=== PATIENT | female | born 1955 | race Caucasian/White ===

== ENCOUNTER 2016-09-02 | Emergency (ER) | payer OTHER | END 2016-09-02 17:23 | disposition left against medical advice (07) | DX: Z53.21 Procedure and treatment not carried out due to patient leaving prior to being seen by health care provider (principal) ==

== ENCOUNTER → 2016-09-18 | Outpatient (CLI) | payer OTHER | LOC: RAD 16:05 | DX: M54.5 Low back pain (principal) | CPT/HCPCS: 72110 ==

== ENCOUNTER 2020-10-16 20:05 | Emergency (ER) | payer MEDICARE, OTHER ==
[~2020-10-16 20:05] MED LIST: ELIQUIS2.5 MG PO; GABAPENTIN600 MG PO; HYDROCODON-ACE1 EAC2 PO; IPRAT-ALBUT 0.5-3 ML NEB; SYNTHROID100 MCG PO; TESSALON PERLE100 MG PO; ZOCOR10 MG PO
[2020-10-16 22:27] LABS: HEMOGLOBIN 11.5 gm/dl (12.3-15.3); RED BLOOD COUNT 3.82 M/UL (4.00-5.10); WHITE BLOOD COUNT 10.9 K/UL (4.5-11.0)
[2020-10-16 22:41] LABS: BUN/CREATININE RATIO 16 (0-10)
== END 2020-10-17 00:38 | disposition short-term general hospital (02) ==
LOC: ER1 20:05 → CDU 21:53 → ER1 21:53
PROVIDERS: Preventive Medicine Occupational Medicine
DX: M97.02XA Periprosthetic fracture around internal prosthetic left hip joint, initial encounter (principal); W19.XXXA Unspecified fall, initial encounter; Y92.009 Unspecified place in unspecified non-institutional (private) residence as the place of occurrence of the external cause; Z20.822 Contact with and (suspected) exposure to COVID-19
CPT/HCPCS: 51702; 71045; 73502; 73552; 80053; 85025; 93005; 96374; 96375; 99284; G0378; J1170; J2405; U0002

== ENCOUNTER → 2021-05-12 | Outpatient (CLI) | payer MEDICARE | LOC: ECHO 04-24 13:15 | DX: R01.1 Cardiac murmur, unspecified (principal); I35.1 Nonrheumatic aortic (valve) insufficiency | CPT/HCPCS: ECHO; 93306 ==

== ENCOUNTER 2021-08-23 23:07 | Inpatient (IN) | payer MEDICARE, OTHER ==
[~2021-08-23] VITALS: Ht 162.6 cm; Wt 68.0 kg
[~2021-08-23 23:07] MED LIST changes: -HYDROCODON-ACE1 EAC2 PO; +HYDROCODON-ACE1 EAC6 PO
[2021-08-23 23:39] LABS: HEMOGLOBIN 13.6 gm/dl (12.3-15.3); RED BLOOD COUNT 4.59 M/UL (4.00-5.10); WHITE BLOOD COUNT 24.7 K/UL (4.5-11.0)
[2021-08-24] MEDS ORDERED: OYSTER SHELL 51 EACH PO (04:19)
[2021-08-24] MEDS ORDERED: PROTONIX40 MG PO (04:19)
[2021-08-24] MEDS ORDERED: MOBIC7.5 MG PO (04:19)
[2021-08-24] MEDS ORDERED: LEVOXYL112 MCG PO (04:20)
[2021-08-24 17:14] LABS: ADENOVIRUS F 40/41 Not Detected (Negative); ASTROVIRUS Not Detected (Negative); CAMPYLOBACTER Not Detected (Negative); CRYPTOSPORIDIUM Not Detected (Negative); E.COLI 0157 Not Detected (Negative); ENTAMOEBA HISTOLYTICA Not Detected (Negative); ENTEROAGGREGATIVE E.COLI (EAEC Not Detected (Negative); ENTEROPATHOGENIC E.COLI (EPEC) Not Detected (Negative); ENTEROTOXIGENIC E.COLI (ETEC) Not Detected (Negative); GIARDIA LAMBLIA Not Detected (Negative); NOROVIRUS GI/GII Not Detected (Negative); PLESIOMONAS SHIGELLOIDES Not Detected (Negative); ROTOVIRUS A Not Detected (Negative); SALMONELLA Not Detected (Negative); SAPOVIRUS Not Detected (Negative); SHIG/ENTEROINVAS.ECOLI (EIEC) Not Detected (Negative); SHIGA-LIK TOX.PRO.E.COLI (STEC Not Detected (Negative); VIBRIO Not Detected (Negative); VIBRIO CHOLERAE Not Detected (Negative); YERSINIA ENTEROCOLITICA Not Detected (Negative)
[2021-08-25 05:49] LABS: HEMOGLOBIN 11.3 gm/dl (12.3-15.3); RED BLOOD COUNT 3.88 M/UL (4.00-5.10); WHITE BLOOD COUNT 35.6 K/UL (4.5-11.0)
[2021-08-25 05:51] LABS: ACINETOBACTER BAUMANNII Not Detected (Negative); CANDIDA ALBICANS Not Detected (Negative); CANDIDA KRUSEI Not Detected (Negative); CANDIDA TROPICALIS Not Detected (Negative); ENTEROCOCCUS Not Detected (Negative); HAEMOPHILUS INFLUENZAE Not Detected (Negative); KLEBSIELLA OXYTOCA Not Detected (Negative); KLEBSIELLA PNEUMONIAE Not Detected (Negative); KPC-CARBAPENEM-RESISTANCE GENE Not Detected (Negative); PROTEUS Not Detected (Negative); PSEUDOMONAS AERUGINOSA Not Detected (Negative); SERRATIA MARCESANS Not Detected (Negative); STAPHYLOCOCCUS Not Detected (Negative); STAPHYLOCOCCUS AUREUS Not Detected (Negative); STREP AGALACTIAE (GROUP B) Not Detected (Negative); STREP PYOGENES (GROUP A) Not Detected (Negative); STREPTOCOCCUS Not Detected (Negative); mecA (METHICILLIN RESIST GENE Not Detected (Negative); vanA/B (VANCOMYCIN RESIST GENE Not Detected (Negative)
[2021-08-25 05:52] LABS: ESCHERICHIA COLI DETECTED (Negative)
[2021-08-26 05:05] LABS: HEMOGLOBIN 9.7 gm/dl (12.3-15.3); WHITE BLOOD COUNT 28.4 K/UL (4.5-11.0)
[2021-08-26 05:21] LABS: RED BLOOD COUNT 3.35 M/UL (4.00-5.10)
[2021-08-26 11:47] LABS: HEMOGLOBIN 9.7 gm/dl (12.3-15.3); RED BLOOD COUNT 3.21 M/UL (4.00-5.10); WHITE BLOOD COUNT 24.5 K/UL (4.5-11.0)
[2021-08-28 16:16] LABS: HEPARIN INDUCED PLATELET AB 0.076 OD (0.000-0.400)
== END 2021-08-26 14:15 | disposition short-term general hospital (02) | DRG 871 ==
LOC: ER1 23:07 → CCU 08-24 02:54 → CDU 08-24 02:54 → CCU 08-24 03:47
PROVIDERS: Internal Medicine; Internal Medicine Hematology & Oncology; Internal Medicine Nephrology; Student in an Organized Health Care Education/Training Program; ADMIT Internal Medicine
PROC: 3E033XZ Introduction of Vasopressor into Peripheral Vein, Percutaneous Approach (ICD-10-PCS; principal; 2021-08-24)
PROC: 3E03329 Introduction of Other Anti-infective into Peripheral Vein, Percutaneous Approach (ICD-10-PCS; 2021-08-24)
DX: A41.51 Sepsis due to Escherichia coli [E. coli] (principal); R65.21 Severe sepsis with septic shock; I21.A1 Myocardial infarction type 2; N17.0 Acute kidney failure with tubular necrosis; G93.41 Metabolic encephalopathy; J18.9 Pneumonia, unspecified organism; N13.6 Pyonephrosis; E87.2 Acidosis; E87.1 Hypo-osmolality and hyponatremia; J98.11 Atelectasis; N30.00 Acute cystitis without hematuria; Z20.822 Contact with and (suspected) exposure to COVID-19; A41.59 Other Gram-negative sepsis; E78.5 Hyperlipidemia, unspecified; E03.9 Hypothyroidism, unspecified; I10 Essential (primary) hypertension; F41.9 Anxiety disorder, unspecified; E87.6 Hypokalemia; I34.0 Nonrheumatic mitral (valve) insufficiency; K21.9 Gastro-esophageal reflux disease without esophagitis; F17.210 Nicotine dependence, cigarettes, uncomplicated; J43.9 Emphysema, unspecified; Z96.642 Presence of left artificial hip joint; E07.9 Disorder of thyroid, unspecified; K57.90 Diverticulosis of intestine, part unspecified, without perforation or abscess without bleeding; F79 Unspecified intellectual disabilities; Z98.51 Tubal ligation status; Z82.49 Family history of ischemic heart disease and other diseases of the circulatory system; Z82.3 Family history of stroke; E83.42 Hypomagnesemia; Z79.899 Other long term (current) drug therapy
CPT/HCPCS: 36415; 36600; 51702; 70450; 71045; 76705; 80048; 80053; 80202; 81001; 82140; 82150; 82533; 82550; 82553; 82570; 82652; 82803; 82962; 83605; 83690; 83735; 83970; 84100; 84132; 84300; 84439; 84443; 84484; 85007; 85025; 85027; 85379; 85384; 85610; 85730; 87040; 87077; 87086; 87150; 87186; 87507; 89050; 93005; 93970; 94640; 94664; 94760; 96374; 96375; 99285; C9113; J0610; J1644; J2405; J2543; J2550; J3370; J3475; J3480; J7030; J7040; J7070; P9047; U0002

== ENCOUNTER 2022-03-25 12:05 | Emergency (ER) | payer MEDICARE, OTHER ==
[~2022-03-25 12:05] MED LIST changes: +LEVOXYL112 MCG PO; +MOBIC7.5 MG PO; +OYSTER SHELL 51 EACH PO; +PROTONIX40 MG PO
== END 2022-03-25 17:40 | disposition home or self-care (01) ==
LOC: ER1 12:05
DX: S46.912A Strain of unspecified muscle, fascia and tendon at shoulder and upper arm level, left arm, initial encounter (principal); S70.02XA Contusion of left hip, initial encounter; E03.9 Hypothyroidism, unspecified; W01.0XXA Fall on same level from slipping, tripping and stumbling without subsequent striking against object, initial encounter; Y92.009 Unspecified place in unspecified non-institutional (private) residence as the place of occurrence of the external cause
CPT/HCPCS: 72192; 73030; 73502; 99283